=== PATIENT | female | born 1935 | race Caucasian/White ===

== ENCOUNTER 2019-04-14 18:24 | Emergency (ER) | payer MEDICARE, OTHER ==
[~2019-04-14] VITALS: Ht 160 cm; Wt 61.2 kg
[2019-04-14 18:30] VITALS: BP 132/54
--- NOTE | 2019-04-14 18:44 | NUR ---
PT TAKEN TO CT
--- NOTE | 2019-04-14 18:51 | NUR ---
BIB [facility] C/O GENERALIZED PAIN, NAUSEA, DIARRHEA VOMITING FOR THE PAST YEAR. PATIENT CLAIMS SHE HAS SEEN HER PCP AND NO SIGNIFICANT FINDINGS. DENIES SOB. RESPIRATIONS ARE EVEN AND UNLABORED. REPORTS CHEST PAIN, NON RADIATING, 10/10 SHARP PAIN SINCE LAST YEAR. TELE [facility]. BOWEL SOUNDS NORMO ACTIVE IN ALL QUADRANTS. ABD SOFT/NON TENDER. AAOX4, NON AGITATED. BRUISES IN BILATERAL UPPER/LOWER EXTREMITIES. PT CLAIMS IT IS FROM BLOOD BEING TAKEN. PATIENT CANNOT REMEMBER IF SHE HAS ANY MED ALLERGIES.
[2019-04-14 19:44] LABS: BASOPHILS % (AUTO) 0.8 % (0.0-2.0); EOSINOPHILS # (AUTO) 0.1 K/uL (0-0.4); EOSINOPHILS % (AUTO) 1.9 % (0.0-4.0); HEMATOCRIT 32.1 % (36-48); HEMOGLOBIN 10.5 g/dL (12.0-16.0); LYMPHOCYTES # (AUTO) 0.8 K/uL (2.5-16.5); LYMPHOCYTES % (AUTO) 25.1 % (20.5-51.1); MEAN CORPUSCULAR HEMOGLOBIN 32 pg (27-31); MEAN CORPUSCULAR HGB CONC 33 g/dL (33-37); MEAN CORPUSCULAR VOLUME 96.4 fL (80-94); MONOCYTES # (AUTO) 0.4 K/uL (0.8-1.0); MONOCYTES % (AUTO) 10.9 % (1.7-9.3); NEUTROPHILS % (AUTO) 61.3 % (42.2-75.2); PLATELET COUNT (AUTO) 140 K/uL (140-450); RED BLOOD CELL COUNT(AUTO) 3.33 MIL/uL (4.20-5.40); RED CELL DISTRIBUTION WIDTH 14.2 % (11.6-13.7); WHITE BLOOD COUNT (AUTO) 3.3 K/uL (4.8-10.8)
[2019-04-14 20:01] LABS: ANION GAP 14.2 (8-16); CARBON DIOXIDE 24.6 mmol/L (21-32); CHLORIDE 105 mmol/L (98-107); CREATININE 1.1 mg/dL (0.6-1.3); GLUCOSE 92 mg/dL (74-106); POTASSIUM 4.8 mmol/L (3.5-5.1); SODIUM SERUM 139 mmol/L (136-145); UREA NITROGEN, BLOOD 38 mg/dL (7-18)
[2019-04-14 20:09] LABS: ALBUMIN 3.5 g/dL (3.4-5.0); ASPARTATE AMINOTRANSFERASE 14 U/L (15-37); TOTAL BILIRUBIN 0.4 mg/dL (0.0-1.0)
--- NOTE | 2019-04-14 20:17 | NUR ---
PT AMBULATED TO BATHROOM TO PROVIDE URINE SAMPLE
[2019-04-14 20:33] LABS: APPEARANCE,URINE CLEAR (CLEAR); BILIRUBIN,URINE NEGATIVE (NEGATIVE); BLOOD, URINE NEGATIVE (NEGATIVE); COLOR,URINE YELLOW (YELLOW); LEUKOCYTE ESTERASE ,URINE NEGATIVE (NEGATIVE); NITRITE, URINE NEGATIVE (NEGATIVE); PH,URINE 7.5 (5.0-9.0); UGLUCOSE NEGATIVE (NEGATIVE)
[2019-04-14] MEDS ORDERED: NACL 0.9% 500 ML IV ONE (20:35)
[2019-04-14] MEDS ORDERED: fentaNYL 0.05 MG/ML VIAL IVP ONE (20:35)
[2019-04-14] MEDS ORDERED: ONDANSETRON 4 MG/2 ML VIAL IVP ONE (20:35)
--- NOTE | 2019-04-14 21:07 | NUR ---
PATIENT RESTING IN BED. RATES PAIN /10. VSS. ALL NEEDS MET AT THIS TIME.
[2019-04-14 21:37] LABS: PROTHROMBIN TIME 16.2 secs (10.8-13.4)
--- NOTE | 2019-04-14 23:27 | NUR ---
PT LAYING IN BED, RR EVEN AND UNLABORED. VS NOTED. ALL NEEDS MET.
[2019-04-15 00:03] VITALS: BP 151/86
--- NOTE | 2019-04-15 00:03 | NUR ---
Patient discharged with v/s stable. She states relief. Written and verbal after care instructions given and explained. Patient alert, oriented and verbalized understanding of instructions. Ambulatory with steady gait. All questions addressed prior to discharge. ID band removed. Patient advised to follow up with PMD. Rx of Bentyl and Lactulose given. Patient educated on indication of medication including possible reaction and side effects. Opportunity to ask questions provided and answered.
== END 2019-04-15 00:03 | disposition home or self-care (01) ==
LOC: MED 18:24
DX: S80.12XA Contusion of left lower leg, initial encounter (principal); B34.9 Viral infection, unspecified; R10.13 Epigastric pain; W22.03XA Walked into furniture, initial encounter; Y93.89 Activity, other specified; Y92.89 Other specified places as the place of occurrence of the external cause; Y99.8 Other external cause status
CPT/HCPCS: 36415; 71045; 74176; 80053; 81003; 83690; 84484; 85025; 85610; 85730; 87804; 96374; 96375; 99284; J2405; J3010; J7030; Q0092